=== PATIENT | female | born 1945 | race Asian ===

== ENCOUNTER 2024-05-03 11:59 | Inpatient (IN) ==
[2024-05-03 12:43] LABS: ABS Eosinophils 0.2 10^3/uL (0.0-0.5); ABS Lymphocytes 2.5 10^3/uL (1.0-4.8); ABS Monocytes 0.4 10^3/uL (0.0-0.9); ABS Neutrophils 2.6 10^3/uL (1.5-7.6); Eosinophil % 2.8 %; Hematocrit 41.9 % (35-45); Hemoglobin 13.9 g/dL (11.5-14.3); Lymphocyte % 44.4 %; Mean Corpuscular Hemoglobin 29.9 pg (27-33); Mean Corpuscular Hgb Conc 33.2 g/dL (31-36); Mean Corpuscular Volume 90.1 fL (80-97); Nucleated Red Blood Cells % 0.1 %/100WBC (0.0-0.8); Platelet Count 222 10^3/uL (150-450); Red Blood Count 4.65 10^6/uL (3.63-4.92); Red Cell Distribution Width 14.9 % (12-17); White Blood Count 5.6 10^3/uL (3.8-11.8)
[2024-05-03] MEDS: Labetalol IV 5 MG/ML 20 ml VIAL IV PUSH ONE (12:48)
[2024-05-03] MEDS ORDERED: TENECTEPLASE 50 MG VIAL KIT 5 MG/ML (reconstituted) IV ONE (12:52)
[2024-05-03 12:53] LABS: Activated Partial Thrombo Time 30.8 seconds (26.0-38.0); INR 0.94 (0.83-1.13)
[2024-05-03] MEDS: TENECTEPLASE 50 MG VIAL KIT 5 MG/ML (reconstituted) IV ONE (13:01)
[2024-05-03 13:03] LABS: High Sens Troponin Baseline < 3 pg/mL (<15)
[2024-05-03 13:08] LABS: ALT 17 U/L (7-52); AST 26 U/L (13-39); Albumin 4.3 g/dL (3.2-5.2); Albumin/Globulin Ratio 1.5 (1-3); Alkaline Phosphatase 75 U/L (35-149); Anion Gap 10 mmol/L (2-16); Blood Urea Nitrogen 15 mg/dL (6-24); CO2 Carbon Dioxide 26 mmol/L (22-32); Calcium 9.8 mg/dL (8.6-10.3); Chloride 105 mmol/L (101-111); Cholesterol 192 mg/dL; Creatinine, Serum 0.98 mg/dL (0.51-0.95); Direct Bilirubin 0.1 mg/dL (0.03-0.18); Globulin 2.9 g/dL (2-4); Glucose 98 mg/dL (70-100); Indirect Bilirubin 0.3 mg/dL (0.3-1.0); Potassium 3.8 mmol/L (3.5-5.0); Sodium 141 mmol/L (135-145); Total Bilirubin 0.4 mg/dL (0.2-1.0); Total Protein 7.2 g/dL (6.4-8.9); Triglycerides 83 mg/dL; eGFR CKD-EPI 59.4 (>60)
[2024-05-03 13:34] LABS: HDL Cholesterol 84.1 mg/dL; LDL Cholesterol 91 mg/dL
[2024-05-03 13:59] LABS: Urine Appearance Clear; Urine Bilirubin Negative (Negative); Urine Blood Negative (Negative); Urine Color Colorless; Urine Glucose Negative (Negative); Urine Ketones Negative (Negative); Urine Nitrite Negative (Negative); Urine Protein Negative (Negative); Urine Specific Gravity 1.016 (1.002-1.030); Urine Urobilinogen Negative (Negative)
[2024-05-03] MEDS ORDERED: Enoxaparin 40 MG/0.4 ML SYR SUBCUT SCH (14:00)
[2024-05-03 14:02] LABS: Urine Bacteria Absent /HPF (Absent); Urine Red Blood Cell 1+(3-5/hpf) /HPF (0-Trace); Urine Squamous Epithelial Cell Present /HPF (Absent); Urine White Blood Cell Trace(0-5/hpf) /HPF (0-Trace)
[2024-05-03 14:13] LABS: High Sensitivity Troponin 1 Hr < 3 pg/mL (<15)
[2024-05-03] MEDS: Sulfur Hexaflouride MICROSPHR 25 MG VIAL IV ONE (15:38)
[2024-05-03] MEDS: NF:Multivitamins/Mins AREDS2 (NF) CAP PO SCH (21:48)
[2024-05-04 04:14] LABS: ABS Eosinophils 0.2 10^3/uL (0.0-0.5); ABS Monocytes 0.3 10^3/uL (0.0-0.9); ABS Neutrophils 2.2 10^3/uL (1.5-7.6); ABS Nucleated RBC 0.01 10^3/ul; Eosinophil % 3.3 %; Hemoglobin 11.9 g/dL (11.5-14.3); Mean Corpuscular Hemoglobin 29.9 pg (27-33); Mean Corpuscular Volume 90.6 fL (80-97); Mean Platelet Volume 8.1 fL (7.5-11.2); Nucleated Red Blood Cells % 0.1 %/100WBC (0.0-0.8); Platelet Count 179 10^3/uL (150-450); Red Blood Count 3.97 10^6/uL (3.63-4.92); Red Cell Distribution Width 14.7 % (12-17); White Blood Count 4.7 10^3/uL (3.8-11.8)
[2024-05-04 05:15] LABS: Anion Gap 8 mmol/L (2-16); Blood Urea Nitrogen 14 mg/dL (6-24); CO2 Carbon Dioxide 24 mmol/L (22-32); Calcium 8.9 mg/dL (8.6-10.3); Chloride 108 mmol/L (101-111); Creatinine, Serum 0.77 mg/dL (0.51-0.95); Glucose 90 mg/dL (70-100); Sodium 140 mmol/L (135-145); eGFR CKD-EPI 79.4 (>60)
[2024-05-05 06:11] LABS: ABS Eosinophils 0.2 10^3/uL (0.0-0.5); ABS Lymphocytes 1.8 10^3/uL (1.0-4.8); ABS Monocytes 0.3 10^3/uL (0.0-0.9); ABS Neutrophils 2.1 10^3/uL (1.5-7.6); ABS Nucleated RBC 0.01 10^3/ul; Eosinophil % 3.9 %; Hematocrit 37.2 % (35-45); Hemoglobin 12.7 g/dL (11.5-14.3); Lymphocyte % 40.7 %; Mean Corpuscular Hemoglobin 30.6 pg (27-33); Mean Corpuscular Hgb Conc 34.2 g/dL (31-36); Mean Corpuscular Volume 89.4 fL (80-97); Mean Platelet Volume 8.1 fL (7.5-11.2); Nucleated Red Blood Cells % 0.2 %/100WBC (0.0-0.8); Platelet Count 185 10^3/uL (150-450); Red Blood Count 4.16 10^6/uL (3.63-4.92); Red Cell Distribution Width 14.4 % (12-17); White Blood Count 4.4 10^3/uL (3.8-11.8)
[2024-05-05 06:52] LABS: Calcium 9.1 mg/dL (8.6-10.3); Creatinine, Serum 0.71 mg/dL (0.51-0.95); Potassium 3.8 mmol/L (3.5-5.0); eGFR CKD-EPI 87.5 (>60)
[2024-05-05] MEDS: Multivitamins/Minerals TAB PO SCH (08:40)
[2024-05-05] MEDS: Gadoteridol (CONTRAST) 279.3 MG/ML 10 ML IV ONE (15:43)
[2024-05-06] MEDS: Aspirin EC 81 mg TAB.EC (enteric coated) PO SCH (07:54)
[2024-05-06 11:03] VITALS: BP 110/76
[2024-05-10] MEDS: Iodixanol 320 (CONTRAST) 100 ML SDV IV ONE (14:06)
== END 2024-05-06 11:35 | disposition home or self-care (01) | DRG 61 ==
LOC: ED 11:59 → EDHOLD 13:29 → ICU 14:43
PROVIDERS: ADMIT Student in an Organized Health Care Education/Training Program; ATTEND Student in an Organized Health Care Education/Training Program